=== PATIENT | female | born 2000 | race Caucasian/White ===

== ENCOUNTER 2025-03-08 15:16 | Emergency (ER) | payer OTHER ==
[~2025-03-08] VITALS: Ht 149.9 cm; Wt 50.0 kg
[2025-03-08 15:39] VITALS: BP 108/56; PULSE 65; RESP 18; TEMP 98.1; O2SAT 99
[2025-03-08] MEDS: IBUPROFEN 600 MG TABLET PO ONE (18:18)
[2025-03-08] MEDS: LIDOCAINE 5% TRANSDERMAL PATCH TD ONE (18:19)
[2025-03-08] MEDS ORDERED: METH-659 PO (19:18)
[2025-03-08] MEDS ORDERED: IBUP-1492 PO (19:18)
== END 2025-03-08 19:40 | disposition home or self-care (01) ==
LOC: EMS 15:16
DX: S93.401A Sprain of unspecified ligament of right ankle, initial encounter (principal); S16.1XXA Strain of muscle, fascia and tendon at neck level, initial encounter; V89.2XXA Person injured in unspecified motor-vehicle accident, traffic, initial encounter; Y93.89 Activity, other specified; Y92.410 Unspecified street and highway as the place of occurrence of the external cause; Y99.8 Other external cause status
CPT/HCPCS: 99284; 73610-TC; Z7502; Z7610

== ENCOUNTER 2025-05-01 20:03 | Emergency (ER) | payer MEDICAID, OTHER ==
[~2025-05-01] VITALS: Ht 149.9 cm; Wt 51.3 kg
[~2025-05-01 20:03] MED LIST: IBUP-1492 PO; METH-659 PO
[2025-05-01 20:56] LABS: PLATELET COUNT (AUTO) 319 K/uL (150-450); RED BLOOD CELL COUNT(AUTO) 4.60 MIL/uL (4.00-5.20); RED CELL DISTRIBUTION WIDTH 12.8 % (11.5-14.5); WHITE BLOOD COUNT (AUTO) 13.8 K/uL (4.5-11.0)
[2025-05-01 20:59] LABS: CALCIUM, TOTAL 9.3 mg/dL (8.8-10.5); CREATININE 0.60 mg/dL (0.60-1.30); GLOMERULAR FILTR. RATE CALC > 60 mL/min (>60); GLUCOSE,RANDOM 91 mg/dL (70-110); SODIUM SERUM 141 mmol/L (136-145); UREA NITROGEN, BLOOD 11 mg/dL (7-18)
[2025-05-01 22:57] LABS: APPEARANCE,URINE HAZY (CLEAR); GLUCOSE, URINE (UA) NEGATIVE (NEGATIVE); LEUKOCYTE ESTERASE ,URINE LARGE (NEGATIVE); NITRATE,URINE NEGATIVE (NEGATIVE); OCCULT BLOOD,URINE LARGE (NEGATIVE); SPECIFIC GRAVITIY, URINE 1.026 (1.003-1.030)
[2025-05-01 23:11] LABS: SULFOSALICYLIC ACID,URINE 4+ (Negative)
[2025-05-01 23:16] LABS: SQUAMOUS EPITHELIAL CELL,UR Few /LPF (None Seen); YEAST,URINE Few /HPF (None Seen)
[2025-05-02] MEDS ORDERED: IOHEXOL 350 MG/ML 100 ML VIAL ONE (00:30)
[2025-05-02] MEDS: CefTRIAXone 1 GM/DEXTROSE 50 ML IV ONE (00:50)
[2025-05-02] MEDS ORDERED: CEPH-558 PO (02:13)
[2025-05-02 03:00] VITALS: BP 110/65; PULSE 65; RESP 16; TEMP 97.905272; O2SAT 100
== END 2025-05-02 03:10 | disposition home or self-care (01) ==
LOC: EMS 20:06
DX: N39.0 Urinary tract infection, site not specified (principal); N93.9 Abnormal uterine and vaginal bleeding, unspecified
CPT/HCPCS: 99285; 80048; 81001; 84702; 85025; 87086; 36415; 74177; 96365; Q9967; J0696; 81002